=== PATIENT | female | born 1980 | race Caucasian/White ===

== ENCOUNTER → 2018-02-04 | Day surgery (SDC) | payer BC ==
[2018-02-04 13:35] VITALS: RESP 16; BMI 19.5
[2018-02-04 15:16] VITALS: BP 101/65; PULSE 68; TEMP 98.3
--- NOTE | 2018-02-04 15:40 | USB ---
EXAMINATION TYPE: US breast aspiration 2 LT DATE OF EXAM: 02/04/2018 COMPARISON: 01/18/2018 outside ultrasound. CLINICAL HISTORY: N63 BREAST LUMP,MASS. Outside ultrasound images are reviewed. Imaging is performed to confirm positioning and findings. On the current examination cysts identified appeared simple. There was a solitary complex cyst which was chosen for aspiration. This was adjacent to the palpable abnormality which is a large simple cyst. Technique: The procedure was explained to the patient, the risks complications and benefits were discussed. Specific discussion regarding implant puncture was discussed. Patient understood the risks and written and verbal informed consent was obtained. Procedure: The skin was cleansed with Betadine. Skin and deeper tissue was anesthetized with 1% lidocaine with sodium bicarbonate. Under ultrasound guidance an 18-gauge needle was advanced into the hypoechoic lesion at the 12:00 position of the left breast. Thick fluid was withdrawn. The needle was then advanced into the adjacent large palpable simple appearing cyst and additional fluid was aspirated easily. There is complete collapse of these cysts. Third adjacent small cyst was identified. Given the benign nature in the successful aspiration of the complex cyst, this third area was not aspirated at this time. Postprocedure imaging was performed demonstrating complete collapse of the cysts. The prosthesis is intact. The aspirate was transferred to pathology for additional evaluation. Discharge instructions were discussed with the patient. Patient understood the instructions and will follow-up with her physician for results. Patient tolerated procedure well. Patient was discharged in stable condition. IMPRESSION: 1. Successful aspiration of 2 adjacent cysts, one complex, the second palpable. Recommendations: 1. Recommendations are pending pathology results. Pathology Results: Benign BREAST, LEFT, 12:00 ASPIRATE: Clusters of bland apocrine cells consistent with benign apocrine cyst. Recommendation Routine screening mammogram to begin at 40 year of age unless clinical indication to start sooner. MTDD
== END ==
LOC: RADUSWWP 13:17
PROVIDERS: ATTEND Surgery
DX: N60.02 Solitary cyst of left breast (principal)
CPT/HCPCS: 88305; 88173; 76942; 19000; J2001

== ENCOUNTER → 2018-02-18 | Outpatient (CLI) | payer BC ==
[2018-02-18 11:23] VITALS: BP 117/73; PULSE 66; RESP 12; TEMP 98.3; BMI 19.5
--- NOTE | 2018-02-18 11:59 | P.PN ---
Progress Note - Text Progress Note Date: 02/18/18 The patient is a 37-year-old white female who is status post ultrasound-guided aspiration of a cystic lesion at the 12:00 area of the left breast. The pathology was consistent with benign apocrine cyst. The patient states that the cystic lesion of concern was completely resolved. The patient is doing well with no complaints. Physical exam: Examination of the left breast does not reveal any persistent palpable abnormality. The patient has no evidence of any hematoma or infection Impression: 1. Benign apocrine cyst 2. Bilateral subpectoral implants 3. Nicotine dependence 4. Anxiety 5. Small hole in the heart mitral valve prolapse treated with aspirin Plan: 1. Medical management of medical conditions 2. After discussion with the patient regarding her nicotine dependence and father cystic breast disease the patient is recommended to stop smoking 3. Follow-up left breast mammogram and ultrasound in 6 months time [facility]
== END | disposition home or self-care (01) ==
LOC: WWCWWP 11:11
PROVIDERS: ATTEND Surgery
DX: Z53.9 Procedure and treatment not carried out, unspecified reason (principal)

== ENCOUNTER → 2018-08-18 | Outpatient (CLI) | payer BC ==
--- NOTE | 2018-08-19 08:42 | MM ---
Reason for exam: follow-up at short interval from prior study. Last mammogram was performed 7 months ago. History: Patient is nulliparous. Family history of breast cancer in mother at age 53. Benign US breast aspiration single LT of the left breast, February 04, 2018. Silicone gel implants in both breasts, 2013. Physical Findings: Nurse did not find any significant physical abnormalities on exam. MG Diag Mamm Implant LT w CAD CC and MLO view(s) were taken of the left breast. Prior study comparison: January 18, 2018, mammogram. The breast tissue is extremely dense which could obscure a lesion on mammography. No significant new findings when compared with previous films. These results were verbally communicated with the patient and result sheet given to the patient on 08/18/18. ASSESSMENT: Benign, BI-RAD 2 RECOMMENDATION: Follow-up diagnostic mammogram of both breasts in 6 months.
--- NOTE | 2018-08-19 08:47 | USB ---
Reason for exam: follow-up at short interval from prior study. History: Patient is nulliparous. Family history of breast cancer in mother at age 53. Benign US breast aspiration single LT of the left breast, February 04, 2018. Silicone gel implants in both breasts, 2013. US Breast LT Left complete breast ultrasound includes all four quadrants, the retroareolar region and axilla. Finding demonstrates a 0.8 x 0.6 x 0.3cm oval, cystic lesion at 12 o'clock, a 0.5 x 0.5 x 0.2cm oval, mixed lesion at 2 o'clock, a 0.5 x 0.3 x 0.3cm oval, hyperechoic lesion at 2 o'clock, a 0.4 x 0.3 x 0.2cm hyperechoic lesion at 2 o'clock, a 0.6 x 0.7 x 0.2cm hypoechoic lesion at 6 o'clock, a 0.8 x 0.8 x 0.2cm oval, cystic, complex lesion at 10 o'clock, a 1.2 x 1.1 x 0.3cm cystic, complex lesion at 11 o'clock, a 1.0 x 0.7 x 0.3cm cystic, complex lesion at 11 o'clock and a 0.9 x 0.3 x 0.3cm cystic cluster at the posterior nipple. These results were verbally communicated with the patient and result sheet given to the patient on 08/18/18. ASSESSMENT: Probably benign, BI-RAD 3 RECOMMENDATION: Ultrasound of the left breast in 6 months.
== END | disposition home or self-care (01) ==
LOC: RADMAMWWP 14:50
PROVIDERS: ATTEND Surgery
DX: R92.8 Other abnormal and inconclusive findings on diagnostic imaging of breast (principal)
CPT/HCPCS: 77065

== ENCOUNTER → 2019-07-29 | Outpatient (CLI) | payer BC ==
--- NOTE | 2019-08-01 08:42 | MM ---
Reason for exam: additional evaluation requested from prior study. Last mammogram was performed 11 months ago. History: Patient is nulliparous. Family history of breast cancer in mother at age 53. Benign US breast aspiration single LT of the left breast, February 04, 2018. Silicone gel implants in both breasts, 2013. Physical Findings: Nurse Summary: 0.25cm nodule in the right breast at 7 o'clock (nurse silva). MG Diag Mamm Implants ASHLI w CAD Bilateral CC, MLO, and ID view(s) were taken. Prior study comparison: August 18, 2018, left breast MG diag mamm implant LT w CAD. January 18, 2018, mammogram. The breast tissue is heterogeneously dense. This may lower the sensitivity of mammography. Retropectoral bilateral silicone implants. 1.0cm left upper outer quadrant focal asymmetry 3cm from nipple. These results were verbally communicated with the patient and result sheet given to the patient on 07/29/19. ASSESSMENT: Incomplete: need additional imaging evaluation, BI-RAD 0 RECOMMENDATION: Ultrasound of both breasts. (right palpable, left upper outer quadrant)
--- NOTE | 2019-08-01 08:43 | USB ---
Reason for exam: additional evaluation requested from abnormal screening. History: Patient is nulliparous. Family history of breast cancer in mother at age 53. Benign US breast aspiration single LT of the left breast, February 04, 2018. Silicone gel implants in both breasts, 2013. US Breast Limited BILAT Right limited breast ultrasound including focal area of concern, retroareolar and axilla demonstrates no cystic or solid lesion seen. Left limited breast ultrasound including focal area of concern, retroareolar and axilla demonstrates a 0.7 x 1.1 x 0.4cm cystic lesion at 12 o'clock. These results were verbally communicated with the patient and result sheet given to the patient on 07/29/19. ASSESSMENT: Benign, BI-RAD 2 RECOMMENDATION: Routine screening mammogram of both breasts in 1 year. Manage patient on a clinical basis.
== END | disposition home or self-care (01) ==
LOC: RADMAMWWP 15:10
PROVIDERS: ATTEND Family Medicine
DX: R92.8 Other abnormal and inconclusive findings on diagnostic imaging of breast (principal)
CPT/HCPCS: 77066

== ENCOUNTER 2020-03-29 16:15 | Emergency (ER) | payer BC ==
--- NOTE | 2020-03-29 17:10 | CT ---
EXAMINATION TYPE: CT brain wo con DATE OF EXAM: 03/29/2020 COMPARISON: None HISTORY: Migraine x [address] DLP: 1054.4 mGycm Automated exposure control for dose reduction was used. Ventricles have normal size. There is no mass effect nor midline shift. There is no sign of intracran ial hemorrhage. Calvarium appears normal. There is no evidence of cerebral edema. Skull base is intac t. Sella turcica appears normal. IMPRESSION: Normal CT scan of the brain.
[2020-03-29] MEDS ORDERED: MORPHINE SULFATE 4 MG/ML SYRINGE IV STA (17:14)
[2020-03-29] MEDS ORDERED: diphenhydrAMINE 50 MG/ML 1 ML VIAL IVP STA (17:14)
[2020-03-29] MEDS ORDERED: SODIUM CHLORIDE 0.9% 1,000 ML IV ONE (17:14)
[2020-03-29] MEDS ORDERED: METOCLOPRAMIDE 5 MG/ML 2 ML VIAL IVP STA (17:14)
--- NOTE | 2020-03-29 18:11 | ED ---
General Adult HPI - General Chief complaint: Headache Stated complaint: Migranes/Poss Med Reaction Time Seen by Provider: 03/29/20 16:39 Source: patient, RN notes reviewed, old records reviewed Mode of arrival: ambulatory Limitations: no limitations - History of Present Illness Initial comments: 39-year-old female patient history of migraine headaches for Seevers chief complaint migraine headache for the last 4 days. She reports that shortly if she woke up about 4 days ago she had mild headache which over the next 6 hours or so and more severe. Ports that has been waxing and waning over the last 4 days going from side to side of her head. Also mildly generalized. Reports has not gone away entirely. Patient has been seen by her primary care provider where she was given Toradol magnesium and that has not improved her symptoms. Denies any other acute complaints. Denies worse headache of life or thunderclap onset. Denies chance of . Systemic: Pt denies fatigue, fever/chills, rash. Pt denies weakness, night sweats, weight loss. Neuro: Pt denies visual disturbances, syncope or pre-syncope. HEENT: Pt denies ocular discharge or irritation, otalgia, rhinorrhea, pharyngitis or notable lymphadenopathy. Cardiopulmonary: Pt denies chest pain, SOB, heart palpitations, dyspnea on exertion. Abdominal/GI: Pt denies abdominal pain, n/v/d. : Pt denies dysuria, burning w/ urination, frequency/urgency. Denies new onset urinary or bowel incontinence. MSK: Pt denies myalgia, loss of strength or function in extremities. Neuro: Pt denies new onset weakness, paresthesias. - Related Data Home Medications Medication Instructions Recorded Confirmed Aspirin [Adult Low Dose Aspirin EC] 81 mg PO DAILY 01/29/18 02/18/18 Bisoprolol-Hctz 10-6.25 mg [Ziac 10 tab PO DAILY 01/29/18 02/18/18 10-6.25 MG] Escitalopram [Lexapro] 5 mg PO DAILY 01/29/18 02/18/18 Vitamin B Complex 1 each PO DAILY 02/01/18 02/18/18 Allergies Allergy/AdvReac Type Severity Reaction Status Date / Time No Known Allergies Allergy Verified 03/29/20 16:28 Review of Systems ROS Statement: Those systems with pertinent positive or pertinent negative responses have been documented in the HPI. ROS Other: All systems not noted in ROS Statement are negative. Past Medical History Additional Past Medical History / Comment(s): small hole in heart (treated with beta man and aspirin daily) History of Any Multi-Drug Resistant Organisms: None Reported Past Surgical History: Tonsillectomy Additional Past Surgical History / Comment(s): removal of wisdom teeth, breast implants (2013) Past Anesthesia/Blood Transfusion Reactions: No Reported Reaction Past Psychological History: Anxiety Smoking Status: Current every day smoker Past Alcohol Use History: Daily Past Drug Use History: None Reported - Past Family History Mother Family Medical History: Cancer Additional Family Medical History / Comment(s): breast cancer Father Family Medical History: No Reported History Sister(s) Additional Family Medical History / Comment(s): found lump in breast at age 34 (no treatment necessary) General Exam - General Exam Comments Initial Comments: Constitutional: NAD, AOX3, Pt has pleasant affect. HEENT: NC/AT, trachea midline, neck supple, no lymphadenopathy. Posterior pharynx non erythematous, without exudates. External ears appear normal, without discharge. TM pale morales bilaterally. Mucous membranes moist. Eyes PERRLA, EOM intact. There is no scleral icterus. No pallor noted. Cardiopulmonary: RRR, no murmurs, rubs or gallops, no JVD noted. Lungs CTAB in anterior and posterior saleem. No peripheral edema. Abdominal exam: Abdomen soft and non-distended. Neuro: CN II-XII intact. No nuchal rigidity. No raccon eyes, no regalado sign, no hemotympanum. No cervical spinal tenderness. MSK: No posterior calf tenderness bilaterally, homans sign negative bilaterally. Posterior tibialis and radial pulse +2 bilaterally. Sensation intact in upper and lower extremities. Full active ROM in upper and lower extremities, 5/5 stregnth. Limitations: no limitations Course Vital Signs 03/29/20 16:26 Temperature 98.1 F Pulse Rate 81 Respiratory 20 Rate Blood Pressure 117/77 O2 Sat by Pulse 99 Oximetry Medical Decision Making - Medical Decision Making 31-year-old female patient was ED for evaluation of migraine headache, last 4 days. Patient history of migraine headaches. CT brain without contrast was performed and is negative. Neurologic exam is intact. Patient headache has resolved with analgesia. We'll follow up with primary care provider and return to ER if any worsening symptoms. Case discussed with Disposition Clinical Impression: Headache Disposition: HOME SELF-CARE Condition: Stable Instructions (If sedation given, give patient instructions): Acute Headache (ED) Additional Instructions: follow-up with primary care provider tomorrow. Return to ER with any worsening symptoms. Is patient prescribed a controlled substance at d/c from ED?: No Referrals: Kel Claire MD [Primary Care Provider] - 1-2 days
[2020-03-29] MEDS ORDERED: KETOROLAC 15 MG/ML 1 ML VIAL IVP STA (18:27)
[2020-03-29 19:32] VITALS: BP 105/66; PULSE 63; RESP 17; TEMP 98.2
== END 2020-03-29 19:31 | disposition home or self-care (01) ==
LOC: EC 16:15
DX: G43.909 Migraine, unspecified, not intractable, without status migrainosus (principal); F41.9 Anxiety disorder, unspecified; F17.200 Nicotine dependence, unspecified, uncomplicated; Z79.82 Long term (current) use of aspirin; Z79.899 Other long term (current) drug therapy
CPT/HCPCS: 70450; 99284; 96374; 96375 ×3; 96361; J2270; J1200; J2765; J1885

== ENCOUNTER → 2020-11-07 | Outpatient (CLI) | payer BC ==
--- NOTE | 2020-11-08 11:15 | MM ---
Reason for exam: screening (asymptomatic). Last mammogram was performed 1 year and 3 months ago. History: Patient is nulliparous. Family history of breast cancer in mother at age 53. Benign US breast aspiration single LT of the left breast, February 04, 2018. Silicone gel implants in both breasts, 2013. Taking hormonal contraceptives for 4 years. Physical Findings: A clinical breast exam by your physician is recommended on an annual basis and results should be correlated with mammographic findings. MG Screening Mammo Implant/CAD Bilateral CC, MLO, and ID view(s) were taken. Prior study comparison: July 29, 2019, bilateral MG diag mamm implants ASHLI w CAD. August 18, 2018, left breast MG diag mamm implant LT w CAD. The breast tissue is extremely dense which could obscure a lesion on mammography. There is no discrete abnormality. Bilateral subpectoral implants remonstrated. No significant changes when compared with prior studies. ASSESSMENT: Benign, BI-RAD 2 RECOMMENDATION: Routine screening mammogram of both breasts in 1 year. Some consider bilateral ultrasound surveillance in patient with extremely dense fibroglandular tissue.
== END | disposition home or self-care (01) ==
LOC: RADMAMWWP 14:48
PROVIDERS: ATTEND Family Medicine
DX: Z12.31 Encounter for screening mammogram for malignant neoplasm of breast (principal); Z80.3 Family history of malignant neoplasm of breast
CPT/HCPCS: 77067